=== PATIENT | male | born 1980 | race Caucasian/White ===

== ENCOUNTER 2021-01-20 09:20 | Observation (INO) ==
[2021-01-20 10:36] LABS: Basophils % 0.3 %; Eosinophils # 0.1 K/mcL (0.0-0.6); Hematocrit 50.1 % (37.5-50.1); Hemoglobin 16.2 g/dL (12.9-16.9); Immature Granulocytes % 0.3 % (0-4); Lymphocytes # 3.8 K/mcL (0.6-4.6); Lymphocytes % 30.6 %; Mean Corpuscular HGB Conc 32.3 g/dL (31.6-35.5); Mean Corpuscular Hemoglobin 28.1 pg (28.0-33.3); Mean Platelet Volume 11.5 fL (9.4-12.4); Monocytes # 0.9 K/mcL (0.0-1.3); Monocytes % 6.8 %; Neutrophils # 7.7 K/mcL (1.6-8.9); Platelet Count 248 K/mcL (140-400); Red Blood Count 5.76 M/mcL (4.19-5.50); Red Cell Distribution Width 13.7 % (11.5-14.5); White Blood Count 12.6 K/mcL (4.3-11.1)
[2021-01-20 10:49] LABS: BUN/Creatinine Ratio 24 (6-26); Blood Urea Nitrogen 16 mg/dL (6-20); Calcium 9.3 mg/dL (8.6-10.3); Carbon Dioxide 25 mEq/L (23-29); Chloride 102 mEq/L (98-107); Glucose 164 mg/dL (70-105); Osmolality,Calculated 289 (280-300); Potassium 4.1 mEq/L (3.5-5.1); Sodium 137 mEq/L (136-145); Troponin I 0.03 ng/mL (< 0.04); eGFR For African Americans > 60 (> 60); eGFR For Non-African Americans > 60 (> 60)
[2021-01-20] MEDS ORDERED: Acetaminophen 325 MG TABLET PO PRN (12:16)
[2021-01-20] MEDS ORDERED: Naloxone 0.4 MG/ML INJ IVP PRN (12:16)
[2021-01-20] MEDS ORDERED: Perflutren Lipid Microsphere 1.3 ML in 0.9 % Sodium Chloride 8.7 ML IVP PRN (16:10)
[2021-01-20 16:22] VITALS: BP 114/76
[2021-01-20] MEDS ORDERED: *HR* Rivaroxaban 10 MG TABLET PO SCH (17:00)
[2021-01-20 17:17] LABS: Chol/HDL Ratio 7.2 (0-4.9)
[2021-01-20 17:31] LABS: Estimated Average Glucose 206 mg/dl; Hemoglobin A1C 8.8 %
[2021-01-20] MEDS ORDERED: lisinopriL 20 MG TABLET PO SCH (21:00)
[2021-01-20] MEDS ORDERED: Melatonin 3 MG TABLET PO PRN (21:00)
[2021-01-20] MEDS ORDERED: BuPROPion XL (24 HR) 150 MG TABLET PO SCH (21:00)
[2021-01-20] MEDS ORDERED: hydroCHLOROthiazide 25 MG TABLET PO SCH (21:00)
[2021-01-21] MEDS ORDERED: DilTIAZem CD (24hr) 120 MG CAP.ER.24H PO SCH (09:00)
[2021-01-21] MEDS ORDERED: Cholecalciferol (D-3) 1,000 UNIT (25MCG) TABLET PO SCH (09:00)
== END 2021-01-20 18:55 | disposition home or self-care (01) ==
LOC: CDU 09:20 → EMEROOARM 09:20 → CDU 12:45 → 3BNU 15:19
PROVIDERS: ADMIT Internal Medicine; ATTEND Internal Medicine